=== PATIENT | male | born 1995 | race Caucasian/White ===

== ENCOUNTER 2020-07-02 11:52 | Inpatient (IN) | payer OTHER ==
[~2020-07-02] VITALS: Ht 172.7 cm; Wt 81.6 kg
[2020-07-02 13:12] LABS: RED BLOOD COUNT 5.02 M/UL (4.20-5.50); WHITE BLOOD COUNT 7.3 K/UL (4.5-11.0)
[2020-07-02 13:40] LABS: BUN/CREATININE RATIO 26 (0-10)
[2020-07-02] MEDS ORDERED: VICKS NYQUIL C354 M2 PO (16:16)
[2020-07-03 06:25] LABS: HEMOGLOBIN 13.2 gm/dl (14.0-17.5); RED BLOOD COUNT 4.61 M/UL (4.20-5.50); WHITE BLOOD COUNT 8.4 K/UL (4.5-11.0)
[2020-07-03 06:45] LABS: BUN/CREATININE RATIO 26 (0-10)
[2020-07-04 05:47] LABS: BUN/CREATININE RATIO 22 (0-10)
[2020-07-05 04:08] LABS: BUN/CREATININE RATIO 14 (0-10)
[2020-07-05 10:17] LABS: HEMOGLOBIN 14.5 gm/dl (14.0-17.5); RED BLOOD COUNT 4.92 M/UL (4.20-5.50); WHITE BLOOD COUNT 8.1 K/UL (4.5-11.0)
[2020-07-05 10:49] LABS: BUN/CREATININE RATIO 17 (0-10)
[2020-07-06] MEDS ORDERED: INSULIN SYRING1 EAC1 MC (10:02)
[2020-07-06] MEDS ORDERED: ACCU-CHEK1 EACH MC (10:02)
[2020-07-06] MEDS ORDERED: NOVOLOG MI100 UNIT/2 SC (10:02)
[2020-07-06] MEDS ORDERED: METFORMIN HCL850 MG PO (10:02)
[2020-07-06] MEDS ORDERED: GLUCOSE TEST S1 EACH MC (10:02)
[2020-07-06] MEDS ORDERED: THERA-M TABLET1 EACH PO (10:02)
[2020-07-06] MEDS ORDERED: AUGMENTIN 875-1 EACH PO (10:02)
== END 2020-07-06 13:24 | disposition home or self-care (01) | DRG 264 ==
LOC: ER1 11:52 → CDU 13:55 → M/S 13:55
PROVIDERS: Emergency Medicine; Physician Assistant; Podiatrist Foot & Ankle Surgery; ADMIT Internal Medicine Infectious Disease
PROC: 0HRNXK3 Replacement of Left Foot Skin with Nonautologous Tissue Substitute, Full Thickness, External Approach (ICD-10-PCS; 2020-07-03)
PROC: 0JBR0ZZ Excision of Left Foot Subcutaneous Tissue and Fascia, Open Approach (ICD-10-PCS; principal; 2020-07-03 09:00)
DX: E10.52 Type 1 diabetes mellitus with diabetic peripheral angiopathy with gangrene (principal); L02.416 Cutaneous abscess of left lower limb; I96 Gangrene, not elsewhere classified; E10.621 Type 1 diabetes mellitus with foot ulcer; Z20.822 Contact with and (suspected) exposure to COVID-19; E10.65 Type 1 diabetes mellitus with hyperglycemia; Z91.14 Patient's other noncompliance with medication regimen; Z90.89 Acquired absence of other organs; Z83.3 Family history of diabetes mellitus
CPT/HCPCS: 36415; 73620; 73721; 78315; 80048; 80053; 80202; 82009; 82962; 83036; 83605; 85025; 85652; 86140; 87040; 87070; 87077; 87186; 87205; 96365; 96366; 96367; 96372; 96375; 96376; 99284; A9503; J1335; J2001; J2250; J2405; J2543; J2704; J2795; J3010; J3370; J7030; J7040; J7050; J7070; J7120; Q4133; U0002